=== PATIENT | male | born 1935 | race Caucasian/White ===

== ENCOUNTER 2021-01-26 11:52 | Outpatient (CLI) | payer MEDICARE | END 2021-01-26 11:53 | disposition home or self-care (01) | LOC: CSHRAD 11:52 | PROVIDERS: ATTEND Family Medicine | DX: R06.02 Shortness of breath (principal) | CPT/HCPCS: 71046 ==

== ENCOUNTER 2022-03-15 09:45 | Inpatient (IN) | payer MEDICARE ==
[2022-03-18] MEDS ORDERED: Aspirin 325 MG TAB ONE (08:31)
[2022-03-18] MEDS ORDERED: Ascorbic Acid 500 mg Chewable Tablet ONE (08:31)
[2022-03-18] MEDS ORDERED: Iopamidol 300 61% 100 ML VIAL FS ONE (09:13)
[2022-03-18] MEDS ORDERED: Lidocaine 1% 20 ML MDV ONE (10:38)
[2022-03-18] MEDS ORDERED: Heparin 10,000 UNITS/ 10 ML VIAL ONE (10:38)
[2022-03-18] MEDS ORDERED: Fentanyl 100 MCG/2 ML VIAL ONE (10:39)
[2022-03-18] MEDS ORDERED: Midazolam HCl 2 mg/2 ml Vial ONE (10:39)
[2022-03-18] MEDS ORDERED: diphenhydrAMINE 50 MG/ML VIAL ONE (11:49)
[2022-03-18] MEDS ORDERED: hydrALAZINE 20 MG/ML VIAL ONE (11:55)
[2022-03-18] MEDS ORDERED: Acetaminophen/Codeine 30-300mg Tablet PO PRN (13:02)
[2022-03-18 13:04] VITALS: BMI 31.0
[2022-03-18] MEDS ORDERED: Atropine Sulfate 0.4 mg/1 ml Vial ONE ×2 (13:09→13:16)
[2022-03-18] MEDS ORDERED: Sodium Chloride 0.9% 1,000 ML IV SCH (13:15)
[2022-03-18] MEDS: Acetaminophen/Codeine 30-300mg Tablet PO PRN ×2 (13:48→19:46)
[2022-03-18] MEDS ORDERED: Midodrine HCl 2.5 MG TAB PO SCH (15:00)
[2022-03-18] MEDS: Sotalol HCl 80 MG TAB PO SCH (21:40)
[2022-03-19 03:22] LABS: Hemoglobin 13.2 g/dL (13.5-17.5); Mean Corpuscular HGB CONC 35.2 g/dL (32.0-36.0); Mean Corpuscular Hemoglobin 33.4 pg (27.0-33.0); Mean Corpuscular Volume 94.9 fl (81.2-95.1); Mean Platelet Volume 11.1 fl (7.4-10.4); Platelet Count 170 10x3/uL (150-450); Red Blood Cell (RBC) Count 3.95 10x6/uL (4.32-5.72); White Blood Cell (WBC) Count 10.4 10x3/uL (3.5-10.5)
[2022-03-19 03:35] LABS: ALT (SGPT) 22 U/L (8-55); AST (SGOT) 19 U/L (5-34); Albumin 3.8 g/dL (3.4-4.8); Alkaline Phosphatase 44 U/L (40-110); Anion Gap 15 mmol/L (10-20); BUN (Urea Nitrogen) 19 mg/dL (8.4-25.7); Bilirubin, Total 0.9 mg/dL (0.2-1.2); Calc. Creatinine Clearance 96 mL/min (70-130); Calcium 9.3 mg/dL (7.8-10.44); Carbon Dioxide 19 mmol/L (23-31); Chloride 106 mmol/L (98-107); Globulin 2.3 g/dL (2.4-3.5); Glucose 155 mg/dL (83-110); Potassium 3.7 mmol/L (3.5-5.1); Protein, Total 6.1 g/dL (5.8-8.1); Sodium 136 mmol/L (136-145)
[2022-03-19 04:50] LABS: MDiff Complete? YES
[2022-03-19 04:52] LABS: Band 4 % (5-11); Lymphocytes 7 % (21-51); Monocytes 7 % (0-10)
[2022-03-19 04:53] LABS: Platelet Morphology Comment Appears Adequate
[2022-03-19 04:54] LABS: RBC Morphology Normal
[2022-03-19 05:11] LABS: Neutrophil 82 % (42-75)
[2022-03-19] MEDS: Sotalol HCl 80 MG TAB PO SCH (08:13)
[2022-03-19] MEDS ORDERED: Metoprolol Tartrate 25 MG TAB PO SCH (09:00)
[2022-03-19] MEDS ORDERED: Clopidogrel Bisulfate 75 MG TAB PO SCH (09:00)
[2022-03-19] MEDS ORDERED: Finasteride 5 MG TAB PO SCH (09:00)
[2022-03-19] MEDS ORDERED: Senokot 8.6 MG TAB PO PRN ×2 (09:18→09:30)
[2022-03-19] MEDS ORDERED: Midazolam HCl 2 mg/2 ml Vial ONE (12:20)
[2022-03-19] MEDS ORDERED: Apixaban 5 MG TAB PO SCH (21:00)
== END 2022-03-19 13:25 | disposition home or self-care (01) | DRG 253 ==
LOC: CSHICU 03-18 08:35 → CSHIMCU 03-18 09:22
PROVIDERS: ADMIT Specialist; ATTEND Specialist
PROC: 04WY3DZ Revision of Intraluminal Device in Lower Artery, Percutaneous Approach (ICD-10-PCS; principal; 2022-03-18)
PROC: 04WY3DZ Revision of Intraluminal Device in Lower Artery, Percutaneous Approach (ICD-10-PCS; 2022-03-18)
PROC: B4101ZZ Fluoroscopy of Abdominal Aorta using Low Osmolar Contrast (ICD-10-PCS; 2022-03-18)
DX: I71.4 Abdominal aortic aneurysm, without rupture (principal); I50.32 Chronic diastolic (congestive) heart failure; I25.118 Atherosclerotic heart disease of native coronary artery with other forms of angina pectoris; I11.0 Hypertensive heart disease with heart failure; E78.5 Hyperlipidemia, unspecified; I48.0 Paroxysmal atrial fibrillation; E78.2 Mixed hyperlipidemia; E11.51 Type 2 diabetes mellitus with diabetic peripheral angiopathy without gangrene; E11.59 Type 2 diabetes mellitus with other circulatory complications; K21.9 Gastro-esophageal reflux disease without esophagitis; N40.0 Benign prostatic hyperplasia without lower urinary tract symptoms; E66.9 Obesity, unspecified; Z68.31 Body mass index [BMI] 31.0-31.9, adult; I25.2 Old myocardial infarction; Z95.5 Presence of coronary angioplasty implant and graft
CPT/HCPCS: 34713; 36215; 75625; 80053; 85025; 93005; 93010; 99152; 99153; C1758; C1760; C1769; C1887; C1894; J0360; J0461; J1200; J1644; J2250; J3010; J7050; Q9967

== ENCOUNTER 2022-03-15 09:49 | Outpatient (CLI) | payer MEDICARE ==
[2022-03-15 11:28] LABS: Anion Gap 14 mmol/L (10-20); BUN (Urea Nitrogen) 16 mg/dL (8.4-25.7); Calc. Creatinine Clearance 0 mL/min (70-130); Carbon Dioxide 21 mmol/L (23-31); Chloride 109 mmol/L (98-107); Glucose 189 mg/dL (83-110); Potassium 4.1 mmol/L (3.5-5.1); Sodium 140 mmol/L (136-145)
[2022-03-15 11:30] LABS: Hemoglobin 13.6 g/dL (13.5-17.5); INR-International Normal Ratio 0.9; Mean Corpuscular HGB CONC 34.7 g/dL (32.0-36.0); Mean Corpuscular Hemoglobin 33.3 pg (27.0-33.0); Mean Corpuscular Volume 95.8 fl (81.2-95.1); Mean Platelet Volume 11.4 fl (7.4-10.4); PTT 25.9 sec (22.0-33.0); Platelet Count 170 10x3/uL (150-450); Prothrombin Time 10.2 sec (9.5-12.1); RBC Distribution Width 12.9 % (11.5-14.5); Red Blood Cell (RBC) Count 4.09 10x6/uL (4.32-5.72); White Blood Cell (WBC) Count 3.7 10x3/uL (3.5-10.5)
[2022-03-15 18:42] LABS: SARS-CoV-2 PCR by NAA Not Detected (NotDetected)
== END 2022-03-15 09:50 | disposition home or self-care (01) ==
LOC: CSHLAB 09:49
PROVIDERS: ATTEND Specialist
DX: Z01.818 Encounter for other preprocedural examination (principal); Z20.822 Contact with and (suspected) exposure to COVID-19
CPT/HCPCS: 80048; 85027; 85610; 85730; 93005; 93010; U0003; U0005

== ENCOUNTER 2023-01-05 08:27 | Outpatient (CLI) | payer MEDICARE ==
[2023-01-05] MEDS ORDERED: Magnevist 469MG/ML 20 ML VIAL ONE (10:17)
== END 2023-01-05 08:28 | disposition home or self-care (01) ==
LOC: CSHMRI 08:27
PROVIDERS: ATTEND Internal Medicine Gastroenterology
DX: K86.81 Exocrine pancreatic insufficiency (principal); K86.2 Cyst of pancreas; K86.3 Pseudocyst of pancreas; K76.89 Other specified diseases of liver; K80.20 Calculus of gallbladder without cholecystitis without obstruction
CPT/HCPCS: 74183; A9579

== ENCOUNTER 2024-03-15 18:47 | Inpatient (IN) | payer MEDICARE ==
[~2024-03-15 18:47] MED LIST: Iopamidol 370 76% 100 ML VIAL ONE
[2024-03-15] MEDS ORDERED: methylPREDNISolone Sod Succ 40 MG VIAL ONE (19:35)
[2024-03-15] MEDS ORDERED: diphenhydrAMINE 50 MG/ML VIAL ONE ×2 (19:35→21:28)
[2024-03-15] MEDS ORDERED: Famotidine/PF 20 mg/2ml Vial ONE ×2 (19:35→21:30)
[2024-03-15 19:58] LABS: #Basophils 0.04 10x3/uL (0.0-0.2); #Eosinphils 0.06 10x3/uL (0.0-0.5); #Monocytes 0.63 10x3/uL (0.0-1.1); #Neutrophils 9.14 10x3/uL (1.5-8.4); %Basophils 0.4 % (0.0-2.0); %Eosinophils 0.6 % (0.0-6.0); %Monocytes 5.9 % (0.0-10.0); %Neutrophils 85.8 % (40.0-75.0); Hematocrit 40.9 % (38.8-50.0); Mean Corpuscular HGB CONC 36.7 g/dL (32.0-36.0); Mean Corpuscular Hemoglobin 33.1 pg (27.0-33.0); Mean Corpuscular Volume 90.3 fL (81.2-95.1); Mean Platelet Volume 10.8 fL (7.4-10.4); Platelet Count 185 10x3/uL (150-450); RBC Distribution Width 13.2 % (11.5-14.5); Red Blood Cell (RBC) Count 4.53 10x6/uL (4.32-5.72); White Blood Cell (WBC) Count 10.6 10x3/uL (3.5-10.5)
[2024-03-15] MEDS ORDERED: Morphine 4 MG/ML VIAL ONE (19:58)
[2024-03-15] MEDS ORDERED: Ondansetron PF 4 MG/2 ML Vial ONE (19:59)
[2024-03-15 20:05] LABS: PTT 26.1 sec (22.0-33.0); Prothrombin Time 11.1 sec (9.5-12.1)
[2024-03-15 20:10] LABS: ALT (SGPT) 19 U/L (8-55); AST (SGOT) 20 U/L (5-34); Albumin 4.1 g/dL (3.4-4.8); Alkaline Phosphatase 60 U/L (40-110); Anion Gap 16 mmol/L (10-20); BUN (Urea Nitrogen) 20 mg/dL (8.4-25.7); Bilirubin, Total 1.2 mg/dL (0.2-1.2); Calc. Creatinine Clearance 0 mL/min (70-130); Calcium 9.6 mg/dL (7.8-10.44); Carbon Dioxide 21 mmol/L (23-31); Chloride 102 mmol/L (98-107); Estimated GFR 75; Globulin 2.9 g/dL (2.4-3.5); Glucose 157 mg/dL (83-110); Lipase 25 U/L (8-78); Magnesium 1.9 mg/dL (1.6-2.6); Potassium 4.1 mmol/L (3.5-5.1); Sodium 135 mmol/L (136-145)
[2024-03-15 20:16] LABS: Troponin I Less than 0.010 ng/mL (< 0.028)
[2024-03-15 21:32] LABS: Bilirubin Neg (Negative); Blood, Urine Negative (Negative); Clarity Clear (Clear); Glucose, Urine (Dipstick) Normal (Negative); Ketone, Urine Negative (Negative); Leukocyte 25 (Negative); Nitrite Negative (Negative); Protein, Urine (Dipstick) Negative (Neg-Trace); Urobilinogen Normal mg/dL (Less than 2)
[2024-03-15 21:45] LABS: Bacteria/HPF Rare-Few HPF (None Seen); CAUTI Indications for Culture Pelvic or flank pain; RBC/HPF 0-3 HPF (0-3); Squamous Epithelial 0-3 HPF (0-3); WBC/HPF 0-3 HPF (0-3)
[2024-03-15 21:46] LABS: Urine Culture Reflex No No
[2024-03-15] MEDS ORDERED: Acetaminophen 650 MG Suppository PR PRN (23:37)
[2024-03-15] MEDS ORDERED: Ondansetron PF 4 MG/2 ML Vial IVP PRN (23:37)
[2024-03-15] MEDS ORDERED: Dextrose 50% Abboject 50 ML SYRINGE SLOW IVP PRN (23:40)
[2024-03-15] MEDS ORDERED: HumaLOG 300 UNITS/3 ML VIAL SC PRN (23:40)
[2024-03-15] MEDS ORDERED: Dextrose 5% in Water 1,000 ML IV PRN (23:40)
[2024-03-15] MEDS ORDERED: Glucagon 1 MG/ML KIT IM PRN (23:40)
[2024-03-16] MEDS ORDERED: Morphine 2 MG/ML VIAL SLOW IVP PRN (00:33)
[2024-03-16 01:07] VITALS: BMI 28.7
[2024-03-16 01:13] LABS: Hematocrit 40.5 % (38.8-50.0); Hemoglobin 14.7 g/dL (13.5-17.5); Platelet Count 175 10x3/uL (150-450)
[2024-03-16] MEDS: Heparin 25,000 units/D5W 500 ML IVPB SCH (01:32)
[2024-03-16] MEDS: Metoprolol Tartrate 5 MG (5 mL) VIAL IVP SCH (01:34)
[2024-03-16 01:44] LABS: Anion Gap 16 mmol/L (10-20); BUN (Urea Nitrogen) 18 mg/dL (8.4-25.7); Calc. Creatinine Clearance 77 mL/min (70-130); Calcium 8.8 mg/dL (7.8-10.44); Carbon Dioxide 18 mmol/L (23-31); Chloride 106 mmol/L (98-107); Estimated GFR 82; Glucose 186 mg/dL (83-110); Magnesium 1.7 mg/dL (1.6-2.6); Potassium 4.1 mmol/L (3.5-5.1); Sodium 136 mmol/L (136-145)
[2024-03-16 05:12] LABS: #Basophils 0.01 10x3/uL (0.0-0.2); #Monocytes 0.12 10x3/uL (0.0-1.1); #Neutrophils 6.94 10x3/uL (1.5-8.4); %Basophils 0.1 % (0.0-2.0); %Lymphocytes 8.4 % (18.0-47.0); %Monocytes 1.5 % (0.0-10.0); %Neutrophils 89.6 % (40.0-75.0); Hemoglobin 14.2 g/dL (13.5-17.5); Mean Corpuscular HGB CONC 37.4 g/dL (32.0-36.0); Mean Corpuscular Hemoglobin 33.8 pg (27.0-33.0); Mean Corpuscular Volume 90.5 fL (81.2-95.1); Mean Platelet Volume 11.2 fL (7.4-10.4); Platelet Count 165 10x3/uL (150-450); RBC Distribution Width 13.2 % (11.5-14.5); White Blood Cell (WBC) Count 7.8 10x3/uL (3.5-10.5)
[2024-03-16] MEDS: Lactated Ringer's 1,000 ML IV SCH (07:03)
[2024-03-16] MEDS ORDERED: Famotidine/PF 20 mg/2ml Vial SLOW IVP SCH (09:00)
[2024-03-16] MEDS: Heparin 10,000 UNITS/ 10 ML VIAL SLOW IVP SCH (09:05)
[2024-03-16] MEDS: Pantoprazole 40 MG VIAL IVP SCH (09:06)
[2024-03-16] MEDS ORDERED: MD-Gastroview 120 ML BOT ONE (10:13)
[2024-03-16] MEDS ORDERED: Apixaban 2.5 MG TAB PO SCH (21:00)
[2024-03-16] MEDS ORDERED: Enoxaparin 40 MG (0.4 mL) SYRINGE SC SCH (21:00)
[2024-03-16 21:04] VITALS: BP 170/98; TEMP 98.4
== END 2024-03-16 18:22 | disposition home or self-care (01) | DRG 389 ==
LOC: CSHERS 18:47 → CSHTELE 23:40
PROVIDERS: ADMIT Student in an Organized Health Care Education/Training Program; ATTEND Internal Medicine
DX: K56.609 Unspecified intestinal obstruction, unspecified as to partial versus complete obstruction (principal); T82.310A Breakdown (mechanical) of aortic (bifurcation) graft (replacement), initial encounter; K56.7 Ileus, unspecified; I10 Essential (primary) hypertension; E78.5 Hyperlipidemia, unspecified; I48.0 Paroxysmal atrial fibrillation; I25.10 Atherosclerotic heart disease of native coronary artery without angina pectoris; N40.0 Benign prostatic hyperplasia without lower urinary tract symptoms; R73.03 Prediabetes; I71.40 Abdominal aortic aneurysm, without rupture, unspecified; Z79.899 Other long term (current) drug therapy; Z79.01 Long term (current) use of anticoagulants; Z98.890 Other specified postprocedural states; Z88.8 Allergy status to other drugs, medicaments and biological substances
CPT/HCPCS: 36415; 36416; 71045; 74174; 74250; 80048; 80053; 81001; 83605; 83690; 83735; 83880; 84443; 84484; 85025; 85610; 85730; 87086; 93005; C9113; J1200; J1644; J2270; J2405; J2920; J7120; Q9963; Q9967; S0028